=== PATIENT | female | born 1945 | race Caucasian/White ===

== ENCOUNTER 2016-10-13 05:02 | Inpatient (IN) | payer MEDICARE, OTHER ==
[~2016-10-13 05:02] MED LIST: ALPRAZOLAM0.5 M3 PO; ASPIRIN EC81 MG PO; COD LIVER OIL1 EAC2 PO; LISINOPRIL-HCT1 EAC3 PO; MOBIC7.5 M2 PO; ZOCOR20 M1 PO
[2016-10-14 05:37] LABS: BASO % 0.1 % (0-2); EOS % 2.6 % (0-7); EOSINOPHIL ABSOLUTE COUNT 0.2 tho/cmm (0.0-0.7); HCT-HEMATOCRIT 31.6 % (34.0-49.0); HGB-HEMOGLOBIN 10.4 gm/dl (12.0-15.5); IMMATURE GRANULOCYTES ABSOLUTE 0.01 tho/cmm (0-0.03); IMMATURE GRANULOCYTES PERCENT 0.1 % (0-0.3); LYMPH % 17.9 % (20-45); LYMPH ABSOLUTE COUNT 1.2 tho/cmm (0.8-4.5); MCHC MEAN CORPUSCULAR HGB CONC 32.9 % (32.0-36.0); MEAN PLATELET VOLUME 9.4 cmc (9.4-12.4); MONO % 12.6 % (0-12); MONOCYTE ABSOLUTE COUNT 0.9 tho/cmm (0.0-1.2); NEUTROPHIL ABSOLUTE COUNT 4.6 tho/cmm (1.6-8.0); NEUTROPHIL-AUTOMATED 4.6 tho/cmm (1.6-8.0); NEUTROPHILS % 66.7 % (40-80); PLATELET COUNT 200 tho/cmm (150-450); RED BLOOD COUNT 3.59 mil/cmm (4.00-5.20); RED CELL DISTRIBUTION WIDTH 13.3 % (12.4-16.4); WHITE BLOOD COUNT 6.9 tho/cmm (4.0-10.0)
[2016-10-15] MEDS ORDERED: OXYCONTIN10 M2 PO (11:33)
[2016-10-15] MEDS ORDERED: ULTRAM50 M1 PO (11:35)
[2016-10-15] MEDS ORDERED: TYLENOL325 M2 PO (11:36)
[2017-03-04] MEDS ORDERED: ROXICODONE5 M2 PO (11:09)
[2017-03-04] MEDS ORDERED: ULTRAM50 M1 PO (11:10)
[2017-03-04] MEDS ORDERED: TYLENOL325 M2 PO (11:11)
== END 2016-10-15 14:45 | DRG 470 ==
LOC: SHSC 05:02 → ORE 06:58 → PACU 08:41 → 5EA 09:35
PROVIDERS: ADMIT Orthopaedic Surgery Foot and Ankle Surgery
PROC: 0SRC0J9 Replacement of Right Knee Joint with Synthetic Substitute, Cemented, Open Approach (ICD-10-PCS; principal; 2016-10-13)
DX: M17.11 Unilateral primary osteoarthritis, right knee (principal); D62 Acute posthemorrhagic anemia; I10 Essential (primary) hypertension; E11.9 Type 2 diabetes mellitus without complications; E78.5 Hyperlipidemia, unspecified; F41.9 Anxiety disorder, unspecified; Z79.82 Long term (current) use of aspirin
CPT/HCPCS: C1713; C1776; J0171; J0690; J1885; J2270; J2795